=== PATIENT | male | born 1985 | race Caucasian/White ===

== ENCOUNTER 2019-09-25 12:47 | Inpatient (IN) | payer SELFPAY ==
[2019-09-25 12:53] VITALS: BP 122/83; PULSE 86; RESP 14; TEMP 36.5; O2SAT 96; BMI 19.2
--- NOTE | 2019-09-25 13:03 | ED_ITS ---
HPI - Psych General: Chief Complaint: Psychiatric Symptoms Stated Complaint: SI Time Seen by Provider: 09/25/19 12:59 Source: patient Mode of arrival: ambulatory History of Present Illness: HPI Narrative: 33-year-old male who states he has been depressed and suicidal over the last week. He states he has a plan of shooting himself in the head. Patient brought in by police. MD complaint: suicidal ideation Onset (ago): week(s) Duration: constant History of same: Yes Relieving factors: none Exacerbating factors: none Associated symptoms: Reports depression and suicidal ideation Review of Systems Const: Denies: fever(s), chills, body aches or change in appetite Eyes: Denies: blurry vision or eye discomfort ENMT: Denies: throat pain or dental pain Card: Denies: chest pain Resp: Denies: dyspnea GI: Denies: abdominal pain, nausea, vomiting or diarrhea : Denies: dysuria Musc: Denies: neck pain or back pain Skin/Breast: Denies: rash Neuro: Denies: headache(s) Psych: Reports: depression and suicidal ideation Paco/Lymph: Denies: easy bruising All/Imm: Denies: urticaria PFSH ED PFSH: Social History Smoking and tobacco status: current every day smoker Physical Exam Const: COMMON NORMALS: no acute distress, patient oriented x3 and healthy appearing HENMT: COMMON NORMALS: normocephalic and atraumatic HEAD & SCALP: normocephalic and atraumatic Eye: COMMON NORMALS: Equal, round and reactive pupils present and EOMs intact bilaterally PUPIL: Yes Equal, round and reactive pupils present Neck/C-Spine: COMMON NORMALS: full ROM and supple Chest: COMMONS NORMALS: normal inspection of the chest and normal palpation of entire chest wall Resp: COMMON NORMALS: normal respiratory effort, No retractions, No use of accessory muscles and clear to auscultation bilaterally AUSCULTATION: clear to auscultation bilaterally Cardio: COMMON NORMALS: regular rate, regular rhythm and No murmurs present (Cardio) RATE: regular rate RHYTHM: regular rhythm GI: COMMON NORMALS: Normal to inspection, nondistended, normoactive bowel sounds present, Soft to palpation, non-tender and no masses PALPATION: Yes Soft to palpation Extremity: COMMON NORMALS: normal to inspection and full ROM Neuro: COMMON NORMALS: patient oriented x3, moves all extremities and no focal motor deficits Psych: COMMON NORMALS: mental status grossly normal and cooperative MOOD & AFFECT: Yes depressed mood and Yes Flat affect present THOUGHT CONTENT: Yes Suicidality present Skin: COMMON NORMALS: no rashes or lesions noted and no wounds GENERAL SKIN EXAM: no rashes or lesions noted MDM - Psych MDM Narrative: Medical decision making narrative: Patient presents here with suicidal ideation. Patient is medically cleared I spoke to psychiatrist Dr. Ac and will admit to the MPU. Lab Data: Labs: Lab Results 09/25/19 09/25/19 Range/Units 13:04 13:04 WBC 6.2 (4.0-10.0) 10^3/ uL RBC 5.21 (4.1-5.3) 10^6/u L Hgb 15.6 (11.7-16.6) g/dL Hct 47.0 (42.0-52.0) % MCV 90.2 (80-94) fL MCH 29.9 (28.0-34.0) pg MCHC 33.2 (30.0-36.0) g/dL RDW 13.5 (12.1-15.1) % Plt Count 270 (130-400) 10^3/c mm MPV 9.3 (7.4-10.4) fL Neut % (Auto) 53.4 % Lymph % (Auto) 31.6 % Freestone % (Auto) 9.0 % Eos % (Auto) 5.1 % Baso % (Auto) 0.6 % Neut # (Auto) 3.3 (1.8-7.7) 10^3/u L Lymph # (Auto) 2.0 (0.8-4.8) 10^3/u L Freestone # (Auto) 0.6 (0.2-0.9) 10^3/u L Eos # (Auto) 0.3 (0.0-0.8) 10^3/u L Baso # (Auto) 0.0 (0.0-0.1) 10^3/u L Nucleated RBC % (a uto) 0 % Nucleated RBCs # 0.0 /100WBC Sodium 138 (136-145) mmol/L Potassium 4.0 (3.5-5.1) mmol/L Chloride 102 (98-107) mmol/L Carbon Dioxide 26 (22-29) mmol/L Anion Gap 14.0 (5-19) BUN 14 (6-20) mg/dL Creatinine 0.8 (0.7-1.2) mg/dL GFR Calculation 110.7 (90-130) mL/min Glucose 82 (65-115) mg/dL Calculated Osmolal ity 281 L (285-295) mOsm/k g Calcium 9.1 (8.5-10.5) mg/dL Total Bilirubin 0.2 (0.15-1.2) mg/dL AST 18 (0-40) U/L ALT 17 (0-41) U/L Alkaline Phosphata se 89 (40-130) IU/L Total Protein 7.3 (6.6-8.7) g/dL Albumin 4.3 (3.5-5.2) g/dL Globulin 3.0 (1.3-4.6) g/dL Salicylates < 0.3 L (3-10) mg/dL Acetaminophen < 5.0 L (10-30) ug/mL Ethyl Alcohol < 10 (0-10) mg/dL Discharge Plan Discharge Patient Disposition: Admitted As Inpatient Clinical Impression: Suicidal ideation Condition: Stable Coding Level of Care Code ED 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
[2019-09-25 13:16] LABS: Basophils % 0.6 %; Eosinophils # 0.3 10^3/uL (0.0-0.8); Eosinophils % 5.1 %; Hemoglobin 15.6 g/dL (11.7-16.6); Lymphocytes % 31.6 %; Mean Corpuscular HGB Conc 33.2 g/dL (30.0-36.0); Mean Corpuscular Hemoglobin 29.9 pg (28.0-34.0); Mean Corpuscular Volume 90.2 fL (80-94); Mean Platelet Volume 9.3 fL (7.4-10.4); Monocytes # 0.6 10^3/uL (0.2-0.9); Neutrophils # 3.3 10^3/uL (1.8-7.7); Neutrophils % 53.4 %; Nucleated Red Blood Cells % 0 %; Platelet Count 270 10^3/cmm (130-400); Red Blood Count 5.21 10^6/uL (4.1-5.3); Red Cell Distribution Width 13.5 % (12.1-15.1); White Blood Count 6.2 10^3/uL (4.0-10.0)
[2019-09-25 13:25] LABS: Acetaminophen < 5.0 ug/mL (10-30); Alanine Aminotransferase 17 U/L (0-41); Albumin Level 4.3 g/dL (3.5-5.2); Alcohol Level < 10 mg/dL (0-10); Alkaline Phosphatase 89 IU/L (40-130); Aspartate Amino Transferase 18 U/L (0-40); Blood Urea Nitrogen 14 mg/dL (6-20); Calcium 9.1 mg/dL (8.5-10.5); Carbon Dioxide 26 mmol/L (22-29); Chloride 102 mmol/L (98-107); Glomerular Filtration Rate 110.7 mL/min (90-130); Glucose 82 mg/dL (65-115); Osmolality Calculated 281 mOsm/kg (285-295); Salicylate < 0.3 mg/dL (3-10); Sodium 138 mmol/L (136-145); Total Bilirubin 0.2 mg/dL (0.15-1.2); Total Protein 7.3 g/dL (6.6-8.7)
[2019-09-25 14:06] VITALS: BP 109/70; PULSE 76; RESP 16; O2SAT 96
[2019-09-25 15:24] VITALS: BP 126/82; PULSE 71; RESP 20; TEMP 37; O2SAT 97
[2019-09-25] MEDS: OLANZapine 10 mg ODT PO (16:57)
[2019-09-25] MEDS: OLANZapine 10 mg TABLET PO (21:36)
[2019-09-25] MEDS: trazodone 50 mg Tablet PO (21:36)
[2019-09-25 22:00] VITALS: BP 114/70; PULSE 59; RESP 16; TEMP 36.7; O2SAT 96
[2019-09-26 06:00] VITALS: RESP 17
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
[2019-09-26 13:52] VITALS: BP 99/61; PULSE 85; RESP 18; TEMP 36.6; O2SAT 97
[2019-09-26] MEDS: OLANZapine 10 mg TABLET PO (20:54)
[2019-09-26 21:40] VITALS: BP 127/76; PULSE 75; RESP 20; TEMP 36.8; O2SAT 94
[2019-09-27 06:00] VITALS: BP 122/73; PULSE 59; RESP 18; TEMP 36.8; O2SAT 96
[2019-09-27 13:25] VITALS: BP 124/72; PULSE 90; RESP 20; TEMP 37.2; O2SAT 96
--- NOTE | 2019-09-27 13:35 | PM.NPN ---
Subjective NPU Subjective: Interval history: Andriy presented today with a significant improvement. He yesterday. No aggressive behavior noted. He did not address this quality analyst/technical writer as a Nigger, nor did he request that he be given a white doctor or any other provider. He apologized for his behavior and sat down with this quality analyst/technical writer respectfully. We reviewed the contents of his 96-hour hold affidavits and the concern that we had related to his reported plan to shoot himself in the head and that people would find his brain splattered over the wall. We agreed to do our due diligence to make sure there is no access to guns at discharge we discussed the risk benefits and alternatives of discharge tomorrow as he is not interested in treatment or medication. Mental Status Exam MSE Comments: This is a well-nourished well-developed white male with adequate dress, grooming and eye contact. No abnormal movements cooperative with exam in no acute distress. Speech was normal rate and volume. Mood described as much better affect congruent. Thought process organized. Thought content: Patient denied any suicidal or homicidal ideations, there were no delusions reported or noted, he denied any auditory visual hallucinations. Attention and concentration were intact and memory was unreliable but none were formally tested. He is alert and oriented x3. Insight and judgment are improving. Vitals/I&O/Wt Last Vital Signs Temp 98.9 F 09/27/19 21:22 Pulse 78 09/27/19 21:22 Resp 20 H 09/27/19 21:22 BP 132/78 09/27/19 21:22 Pulse Ox 97 09/27/19 21:22 Data NPU : 09/25/19 13:04 09/25/19 13:04 A&P Assessment and plan (1) Depression: Status: Acute (2) Substance abuse: Status: Acute (3) Partner relational problem: Status: Acute Additional A&P Information This is a 33-year-old white male with a history of depression and substance abuse with recent partner relational problems which in part led to a 96-hour hold. 1. Continue current medication. And offer to be restarted on medication. 2. Encourage individual group and milieu therapy. 3. Continue to 15-minute checks for safety. 4. We will work with social work team for appropriate follow-up. Involuntary Hold Information 96 Hour Hold: 96 Hour Involuntary Admission: Yes 96 Hour Hold Ending Date: 10/01/19 96 Hour Hold Ending Time: 13:10 Attestations NPU Medical Necessity Statement*: Inpatient hospitalization is medically necessary and the clinically appropriate intervention at this time we will monitor medications and make adjustments. Likely length of stay 2-4 days.If able to verify safety and absence of access to weapons likely will discharge tomorrow. 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
[2019-09-27] MEDS: OLANZapine 10 mg TABLET PO (21:07)
[2019-09-27 21:22] VITALS: BP 132/78; PULSE 78; RESP 20; TEMP 37.2; O2SAT 97
[2019-09-28 06:00] VITALS: BP 114/73; PULSE 69; RESP 22; TEMP 36.8; O2SAT 96
--- NOTE | 2019-09-28 11:27 | P.DS_ITS ---
Diagnoses at Discharge Discharge Diagnosis (1) Partner relational problem: Status: Acute (2) Substance abuse: Status: Acute (3) Depression: Status: Acute (4) Suicidal ideation: Status: Resolved Reason for Visit Reason for Visit: Reason For Visit: 96 Brief History: History of Present Illness Andriy Weston is a 33 year old male who presented today spending most of the time trying to ask other staff if there were any white doctors that he could see so that he would not have to see this caption writer.He walked past this caption writer yesterday after he arrived shaking his head and glaring while saying fucking niggers! After he yielded to that he spent the next portion of the interview saying that he did not want to talk to someone who looks like me. I explained to him the circumstance that he found himself in. There is a 96-hour hold in that that 96-hour hold would not be until September 30. He then advised me that he would be willing to wait to do first to see a white doctor. I explained to him that actually I would be the doctor of record at least through Tuesday which will be the third. He was not willing to give me any significant information. He denied any interest in taking medication or having any treatment and just reported that he wanted to be discharged. He did acknowledge that he was seen in the past and an accident from a March 2018 evaluation is included below given the limited information received during this interaction from a substantive sense for the reason for this presentation. Date of Service: Mar 20, 2018 Reason for Consultation: Suicidal ideation, psychosis Consulting Service and Doctor: ER physician Dr. Meraz HPI: Chief Complaint: Suicidal/aggressive behavior HPI: Patient is a 32-year-old male admitted from the [facility] emergency room on a 96 hour hold due to reported psychosis/hallucinations and aggressive/suicidal behavior. Affidavit reviewed on the patient's chart indicated that his girlfriend had called police as he appeared to be hallucinating and had a rope around his neck. When the police arrived they described him as being paranoid that his girlfriend and the police were trying to kill him. Apparently the girlfriend had made a statement that he was possibly on bath salts. Apparently the patient had been very aggressive towards the emergency room staff and was given Haldol and Benadryl and subsequently sedated. The patient was intoxicated with alcohol with level 181 and urine drug screen is also positive for methamphetamines. ER physician had apparently requested this psychiatric consultation last night. Attending currently reports that the patient has been sedated and is not likely to provide much information at this time. Nursing staff reports the patient wakes up briefly but has been suddenly falling asleep throughout the day including while attempting to call his girlfriend on the telephone or in mid conversation. On [id number] assessment, attending physician introduces this provider and asked the patient to open his eyes and speak with this provider. The patient does open his eyes but reports no he will not speak with this provider. When asked what brought him into the hospital he only grunts. When asked again if he remembers what happened and brought him into the hospital he reports no . When asked if he has been using any substances such as alcohol or other drugs he reports no . He does not offer any free thought/ conversation, so it is unable to be determined if he is understanding any of the questions being asked due to giving no other response than no. Home Meds: Not known Past Medical History Past Medical History Past psychiatric/Medical/family/social History: The history is unknown Review of Systems Review of Systems Review of Systems: Unable to obtain due to patient's sedation. Active Meds: Current Hospital Medications: Medications (Trade) Dose Ordered Sig/Lg Route PRN Reason Start Time Stop Time Status Last Admin Dose Admin Ondansetron HCl (Zofran Inj) 4 mg Q6H PRN IV FOR NAUSEA AND VOMITING 03/20/18 02:00 Sodium Chloride 1,000 ml @ 100 mls/hr CONT IV 03/20/18 02:00 03/20/18 14:34 Haloperidol Lactate (Haldol Inj) 2 mg Q4H PRN IV FOR AGITATION 03/20/18 02:45 Thiamine Mononitrate (Thiamine Tab) 100 mg DAILY PO 03/21/18 10:00 Multivitamins Therapeutic (Therapeutic Multivitamin) 1 ea DAILY PO 03/20/18 10:00 Folic Acid/ Cyanocobalamin/ pyridoxin (Folic Acid Tab) 1 mg DAILY PO 03/20/18 10:00 Lorazepam (Ativan Inj) 2 mg PRN PRN IV FOR WITHDRAWAL 03/20/18 02:45 03/20/18 05:43 Lorazepam (Ativan Inj) 2 mg PRN PRN IM for Withdrawal 03/20/18 02:45 Lorazepam (Ativan Tab) 2 mg PRN PRN PO Withdrawal 03/20/18 02:45 Folic Acid/ Cyanocobalamin/ pyridoxin 1 mg/ Multivitamins 10 ml/Thiamine HCl 100 mg/Sodium Chloride 1,011.2 ml @ 249.013 mls/hr DAILY IV 03/20/18 10:00 03/20/18 09:59 Physical Exam Vital Signs: Vital Signs: Date Time Temp Pulse Resp B/P (MAP) Pulse Ox O2 Delivery O2 Flow Rate FiO2 03/20/18 19:47 57 94 Room Air 03/20/18 18:17 15 112/68 03/20/18 14:00 98.0 Physical Exam: Vital signs: Stable. Musculoskeletal: Unable to be tested currently due to patient's sedation, moves all 4 extremities Neurological: Cranial nerves II through XII grossly intact. Gait and station not tested currently in ICU bed. Hospital Course Hospital Course The patient presented to the emergency room aggressive and on a 96-hour hold, secondary to that aggression, as well as statements that he would shoot himself in the head, very graphically. He was admitted to the neuropsychiatric unit for definitive treatment for those issues. Upon admission, he very slowly acclimated to the individual, group, and milieu therapies provided. He initially was very agitated and greeted this caption writer with racial slurs, including stupid nigger, and things of that nature. He was, initially, reporting that he was going to wait for us to have a white doctor before engaging in treatment. Ultimately, after a couple of days, his likely methamphetamine or other substance intoxication and withdrawal resolved, and he was much more pleasant. Unfortunately there was no UDS obtained in the emergency room and he refused them on the unit, so we do not have a definitive sense of what he was struggling with. Once he stared feeling better, however, he was resistant to initiation of medication and basically took the position that if he maintained his sobriety, things would be fine. His greatest focus was getting back to his significant other. During the hospitalization, the patient had routine laboratory studies which were within normal limits, except for a few outliers. Additionally, he had a general medical evaluation which was within normal limits and revealed no new acute processes. Discharge Summary At the time of discharge the patient denied all lethality, was absent psychosis, and mood and anxiety were well managed. The patient endorsed a plan to avoid all drugs of abuse. The patient was given referrals but was reluctant to commit to outpatient services for mental health or substance abuse treatment. He was evaluated and deemed to be absent credible lethality, and had achieved the maximum benefit from an inpatient hospitalization, and so he was discharged. Involuntary Hold Information 96 Hour Hold: 96 Hour Involuntary Admission: Yes 96 Hour Hold Ending Date: 10/01/19 96 Hour Hold Ending Time: 13:10 Mental Status Exam MSE Comments: This is a slender, white male, with adequate dress, grooming, and eye contact. No abnormal movements. Cooperative with exam in no acute distress. Speech was normal rate and volume. Mood described as good; affect congruent. Thought process, organized. Thought content: patient denied any suicidal or homicidal ideation, there were no delusions reported or noted, patient denied any auditory or visual hallucinations. Attention, concentration, and memory appeared intact but none were formally tested. He is alert and oriented times three. Insight and judgment are limited but improving. Discharge Data Data Completed and Pending: Pending at discharge Category Date Time Status Drug Screen, Urin e Stat Lab 09/25/19 12:54 Uncollected Vitals: Last Vital Signs Temp 98.2 F 09/28/19 06:00 Pulse 69 09/28/19 06:00 Resp 22 H 09/28/19 06:00 BP 114/73 09/28/19 06:00 Pulse Ox 96 09/28/19 06:00 Discharge Plan Discharge Patient Disposition: Home, Self-Care Condition: Stable Prescriptions: Continued No Known Home Medications RF: 0 Discharge Orders: Discharge Order (Routine); Ordered 09/28/19 Ordered By: Joselito Ac Referrals: [facility] [Outside] - 4-7 days (initial paperwork was given to you to fill out. After [facility] has your initial paperwork completed, you will get an assessment. Then you will be able to get appointments. walk-in hours are 7:30 a.m.-2:30 Tuesday through Tuesday. Be sure to call [facility] if you have any questions. ) Discharge Diet: Regular Discharge Activity: Resume usual activity Discharge Date/Time: 09/28/19 12:18 Discharge Attestations NPU Time Spent in Discharge Care*: less than 30 min Specific Discharge Activities: Specific discharge activities: educating patient, discussing with classification case manager/social workers/dc planners, documenting/other paperwork and evaluating patient/reviewing data Coding Level of Care Code Acute Engineering Professionals for Chg Fwd Diagnoses Partner relational problem Z63.0 Substance abuse F19.10 Depression F32.9 Suicidal ideation R45.853
[2019-09-28 11:34] VITALS: BP 114/73; PULSE 69; RESP 22; TEMP 36.8; O2SAT 96
== END 2019-09-28 12:18 | disposition home or self-care (01) | DRG 881 ==
LOC: ER 13:30 → NP 13:48
PROVIDERS: Emergency Medicine; Admitting Provider Psychiatry & Neurology Psychiatry; Visit Provider Psychiatry & Neurology Psychiatry
DX: F32.9 Major depressive disorder, single episode, unspecified (principal); R45.851 Suicidal ideations; F10.129 Alcohol abuse with intoxication, unspecified; Y90.6 Blood alcohol level of 120-199 mg/100 ml; F15.10 Other stimulant abuse, uncomplicated; Z63.0 Problems in relationship with spouse or partner
CPT/HCPCS: 12345; 36415; 80053; 80307; 85025; 99284

== ENCOUNTER 2020-02-14 18:03 | Inpatient (IN) | payer SELFPAY ==
[2020-02-14 18:03] VITALS: BP 131/97; PULSE 105; RESP 18; O2SAT 97
[2020-02-14 18:06] VITALS: BP 044/97; PULSE 118; RESP 18; O2SAT 98
--- NOTE | 2020-02-14 18:11 | ED_ITS ---
HPI - Psych General: Chief Complaint: Psychiatric Symptoms Stated Complaint: si Time Seen by Provider: 02/14/20 18:07 Source: patient Mode of arrival: ambulatory Limitations: no limitations History of Present Illness: HPI Narrative: Chandler is a 34-year-old male with a history of severe depression. He states that he has had suicidal thoughts over the last 1 to 2 days and is voluntarily wanting to get help. He supposed to be on meds and is not been taking them. He does use marijuana denies any other drug use. Denies any recent suicide attempts. Denies any worsening or im proving factors. Associated symptoms: Reports depression and suicidal ideation Review of Systems Const: Denies: fever(s), chills, body aches or change in appetite Eyes: Denies: blurry vision or eye discomfort ENMT: Denies: throat pain or dental pain Card: Denies: chest pain Resp: Denies: dyspnea GI: Denies: abdominal pain, nausea, vomiting or diarrhea : Denies: dysuria Musc: Denies: neck pain or back pain Skin/Breast: Denies: rash Neuro: Denies: headache(s) Psych: Reports: depression and suicidal ideation Paco/Lymph: Denies: easy bruising All/Imm: Denies: urticaria PFSH ED PFSH: Social History Smoking and tobacco status: current every day smoker Physical Exam Const: COMMON NORMALS: no acute distress, patient oriented x3 and healthy appearing HENMT: COMMON NORMALS: normocephalic and atraumatic HEAD & SCALP: normocephalic and atraumatic Eye: COMMON NORMALS: Equal, round and reactive pupils present and EOMs intact bilaterally PUPIL: Yes Equal, round and reactive pupils present Neck/C-Spine: COMMON NORMALS: full ROM and supple Chest: COMMONS NORMALS: normal inspection of the chest and normal palpation of entire chest wall Resp: COMMON NORMALS: normal respiratory effort, No retractions, No use of accessory muscles and clear to auscultation bilaterally AUSCULTATION: clear to auscultation bilaterally Cardio: COMMON NORMALS: regular rate, regular rhythm and No murmurs present (Cardio) RATE: regular rate RHYTHM: regular rhythm GI: COMMON NORMALS: Normal to inspection, nondistended, normoactive bowel sounds present, Soft to palpation, non-tender and no masses PALPATION: Yes Soft to palpation Extremity: COMMON NORMALS: normal to inspection and full ROM Neuro: COMMON NORMALS: patient oriented x3, moves all extremities and no focal motor deficits Psych: COMMON NORMALS: mental status grossly normal, Normal thought process present and cooperative MOOD & AFFECT: Yes depressed mood THOUGHT PROCESS: Normal thought process present THOUGHT CONTENT: Yes Suicidality present Skin: COMMON NORMALS: no rashes or lesions noted and no wounds GENERAL SKIN EXAM: no rashes or lesions noted MDM - Psych MDM Narrative: Medical decision making narrative: Patient presents for suicidal ideations. He is voluntarily wanting to be admitted. Patient is medically cleared I spoke to Dr. Ac and will admit. Lab Data: Labs: Lab Results 02/14/20 02/14/20 02/14/20 Range/Units 18:42 18:42 19:03 WBC 9.9 (4.0-10.0) 10^3/ uL RBC 5.35 H (4.1-5.3) 10^6/u L Hgb 16.3 (11.7-16.6) g/dL Hct 49.6 (42.0-52.0) % MCV 92.7 (80-94) fL MCH 30.5 (28.0-34.0) pg MCHC 32.9 (30.0-36.0) g/dL RDW 13.6 (12.1-15.1) % Plt Count 357 (130-400) 10^3/c mm MPV 9.2 (7.4-10.4) fL Neut % (Auto) 50.5 % Lymph % (Auto) 29.7 % [place] % (Auto) 5.5 % Eos % (Auto) 13.3 % Baso % (Auto) 0.7 % Neut # (Auto) 4.99 (1.8-7.7) 10^3/u L Lymph # (Auto) 2.9 (0.8-4.8) 10^3/u L [place] # (Auto) 0.5 (0.2-0.9) 10^3/u L Eos # (Auto) 1.3 H (0.0-0.8) 10^3/u L Baso # (Auto) 0.1 (0.0-0.1) 10^3/u L Nucleated RBC % (a uto) 0 % Nucleated RBCs # 0.0 /100WBC Sodium 140 (136-145) mmol/L Potassium 3.6 (3.5-5.1) mmol/L Chloride 102 (98-107) mmol/L Carbon Dioxide 27 (22-29) mmol/L Anion Gap 14.6 (5-19) BUN 13 (6-20) mg/dL Creatinine 0.9 (0.7-1.2) mg/dL GFR Calculation 96.0 (90-130) mL/min Glucose 97 (65-115) mg/dL Calculated Osmolal ity 290 (285-295) mOsm/k g Calcium 9.6 (8.5-10.5) mg/dL Total Bilirubin 0.2 (0.15-1.2) mg/dL AST 15 (0-40) U/L ALT 16 (0-41) U/L Alkaline Phosphata se 114 (40-130) IU/L Total Protein 7.7 (6.6-8.7) g/dL Albumin 4.4 (3.5-5.2) g/dL Globulin 3.3 (1.3-4.6) g/dL Salicylates < 0.3 L (3-10) mg/dL Urine Opiates Scre en Negative (Negative) ng/mL Acetaminophen < 5.0 L (10-30) ug/mL Ur Barbiturates Sc reen Negative (Negative) ng/mL Ur Phencyclidine S crn Negative (Negative) ng/mL Ur Amphetamines Sc reen Negative (Negative) ng/mL U Benzodiazepines Scrn Negative (Negative) ng/mL Urine Cocaine Scre en Negative (Negative) ng/mL U Marijuana (THC) Screen Positive H (Negative) ng/mL Ethyl Alcohol < 10 (0-10) mg/dL Discharge Plan Discharge Patient Disposition: Admitted As Inpatient Admit Provider: Joselito Ac Clinical Impression: Suicidal ideation Condition: Stable Coding Level of Care Code ED Forwarder Operator for Anoop Fwd Exam Comprehensive
[2020-02-14 19:15] LABS: Basophils # 0.1 10^3/uL (0.0-0.1); Basophils % 0.7 %; Eosinophils # 1.3 10^3/uL (0.0-0.8); Eosinophils % 13.3 %; Hematocrit 49.6 % (42.0-52.0); Hemoglobin 16.3 g/dL (11.7-16.6); Lymphocytes # 2.9 10^3/uL (0.8-4.8); Lymphocytes % 29.7 %; Mean Corpuscular HGB Conc 32.9 g/dL (30.0-36.0); Mean Corpuscular Hemoglobin 30.5 pg (28.0-34.0); Mean Corpuscular Volume 92.7 fL (80-94); Mean Platelet Volume 9.2 fL (7.4-10.4); Monocytes # 0.5 10^3/uL (0.2-0.9); Monocytes % 5.5 %; Neutrophils # 4.99 10^3/uL (1.8-7.7); Neutrophils % 50.5 %; Nucleated Red Blood Cells % 0 %; Platelet Count 357 10^3/cmm (130-400); Red Blood Count 5.35 10^6/uL (4.1-5.3); Red Cell Distribution Width 13.6 % (12.1-15.1); White Blood Count 9.9 10^3/uL (4.0-10.0)
[2020-02-14] MEDS: LORazepam 1 mg Tablet 2 MG PO (19:21)
[2020-02-14 19:24] LABS: Amphetamines Screen Urine Negative (Negative); Barbiturates Screen Urine Negative (Negative); Benzodiazepines Screen Urine Negative (Negative); Cocaine Screen Urine Negative (Negative); Opiate Screen Urine Negative (Negative); PCP Screen Urine Negative (Negative); THC Screen Urine Positive (Negative)
--- NOTE | 2020-02-14 19:27 | PC.NURSE ---
report received from FRANCISCO J Wayne and care transferred to FRANCISCO J Escobedo
[2020-02-14 19:40] LABS: Acetaminophen < 5.0 ug/mL (10-30); Alanine Aminotransferase 16 U/L (0-41); Albumin Level 4.4 g/dL (3.5-5.2); Alcohol Level < 10 mg/dL (0-10); Alkaline Phosphatase 114 IU/L (40-130); Anion Gap 14.6 (5-19); Aspartate Amino Transferase 15 U/L (0-40); Blood Urea Nitrogen 13 mg/dL (6-20); Calcium 9.6 mg/dL (8.5-10.5); Carbon Dioxide 27 mmol/L (22-29); Chloride 102 mmol/L (98-107); Globulin 3.3 g/dL (1.3-4.6); Glucose 97 mg/dL (65-115); Osmolality Calculated 290 mOsm/kg (285-295); Potassium 3.6 mmol/L (3.5-5.1); Salicylate < 0.3 mg/dL (3-10); Sodium 140 mmol/L (136-145); Total Bilirubin 0.2 mg/dL (0.15-1.2); Total Protein 7.7 g/dL (6.6-8.7)
[2020-02-14 19:52] VITALS: BP 137/107; PULSE 88; RESP 16; O2SAT 99
[2020-02-14 20:48] VITALS: BP 123/80; PULSE 104; RESP 18; TEMP 36.7; O2SAT 96
[2020-02-14 22:00] VITALS: BP 123/80; PULSE 104; RESP 18; TEMP 36.7; O2SAT 99
[2020-02-15 06:00] VITALS: BP 120/73; PULSE 75; RESP 18; TEMP 36.7; O2SAT 99
[2020-02-15 06:18] VITALS: BP 120/73; PULSE 75; RESP 18; TEMP 36.7; O2SAT 99
[2020-02-15] MEDS: OLANZapine 5 mg ODT PO (08:32)
--- NOTE | 2020-02-15 08:32 | PC.NURSE ---
Zyprexa Zydis PRN/Agitation Patient at nurses station attempting to make phone calls and becomes very agitated and slamming phone. went to room and slammed door. PRN Zyprexa Zydis 5mg given at this time. Will continue to monitor effectiveness.
--- NOTE | 2020-02-15 09:30 | PC.NURSE ---
RODRIGO Alegre Follow up Patient continues to be agitated and verbally aggressive. Code 10 called at 0915.
[2020-02-15] MEDS: diphenhydrAMINE 50 mg/mL SDV 1mL IM (09:41)
[2020-02-15] MEDS: LORazepam 2 mg/mL INJ 1 mL IM (09:41)
[2020-02-15] MEDS: haloperidol inj 5 mg/mL INJ 1 mL IM (09:42)
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
--- NOTE | 2020-02-15 10:15 | PC.NURSE ---
Follow up Code 10 meds Patient resting in bed with eyes closed. respirations even and unlabored.
--- NOTE | 2020-02-15 11:59 | PC.NURSE ---
Code 10 0915 02/15/20 Patient Behavior At approximately 0915 the patient became angry and agitated because his SO would not answer the phone. He began ramming into the locked door several times. A code 10 was called and several staff members, the physician, greenhouse florist and security were present. Security spent several minutes talking with patient trying to de-escalate. The patient began inappropriate statements to the physician such as calling him a nigger . Began ramming the door again. We were able to walk him down to room 170 and he agreed to receive injections IM. Dr Ac made the decision to place patient on a 96 hour hold.
--- NOTE | 2020-02-15 12:20 | PC.RESP ---
Smoking Cessation information sent to patient.
[2020-02-15 14:00] VITALS: RESP 18; TEMP 36.4
[2020-02-15 21:41] VITALS: RESP 15
[2020-02-16 06:00] VITALS: BP 103/69; PULSE 93; RESP 17; TEMP 36.6; O2SAT 97
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
[2020-02-16 14:00] VITALS: BP 121/83; PULSE 94; RESP 20; TEMP 36.6; O2SAT 100
--- NOTE | 2020-02-16 15:52 | P.PN_ITS ---
Subjective NPU Subjective: Interval history: Andriy continued his attempts to avoid legitimate conversations with this aligner typewriter. He ultimately was able to acknowledge that he did much better when he was on Zyprexa at night. We discussed the risks, benefits and alternatives of starting 10 mg of a cough and ability to proceed as is documented in this note. He continued to be irritable and offensive. Mental Status Exam MSE Comments: This is a short but well-nourished, well-developed white male in hospital scrubs, with adequate grooming and eye contact. No abnormal movements except for mild psychomotor agitation. Slightly more cooperative with exam and moderate to severe distress. Speech was increased rate and volume. Mood described as annoyed, affect congruent. Thought process organized. Thought content: Patient endorsed suicidal ideation and was aggressive towards others, there were no delusions reported or noted, he did not respond to questions about auditory or visual hallucinations. Attention and concentration appeared intact and memory appeared reliable but none were formally tested. He is alert and oriented x3. Insight and judgment are impaired and impulse control is impaired. Vitals/I&O/Wt Last Vital Signs Temp 98.9 F 02/16/20 21:45 Pulse 68 02/16/20 21:45 Resp 16 02/16/20 21:45 BP 118/71 02/16/20 21:45 Pulse Ox 96 02/16/20 21:45 Weight last 48 hrs Weight 70.307 kg Data NPU : 02/14/20 18:42 02/14/20 18:42 A&P Additional A&P Information (1) Suicidal ideation: (2) Partner relational problem: (3) Substance abuse: (4) Depression: (5) Cannabis abuse: This is a 34-year-old white male who presents with extreme agitation, reporting suicidality and significant despair related to the challenges with his marriage/relationship but with little cooperation with exam. 1. Continue medication. Except: Start Zyprexa 10 mg p.o. nightly 3. Encourage individual, group and milieu therapy. 4. Encourage sober living treatment after discharge at the highest level to which he is willing to commit. 5. Due to Andriy's level of aggression and demanding to leave with suicidal threats, he was placed on a 96-hour hold. Involuntary Hold Information 96 Hour Hold: 96 Hour Involuntary Admission: No 96 Hour Hold Ending Date: 10/01/19 96 Hour Hold Ending Time: 13:10 Attestations NPU Medical Necessity Statement*: Inpatient hospitalization is medically necessary and the clinically appropriate intervention at this time. We will monitor medications and make changes as indicated. Likely length of stay 3-5 days. 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
[2020-02-16] MEDS: OLANZapine 5 mg ODT PO (21:16)
[2020-02-16] MEDS: nicotine 2 mg Gum BUCCAL (21:17)
[2020-02-16 21:45] VITALS: BP 118/71; PULSE 68; RESP 16; TEMP 37.2; O2SAT 96
[2020-02-16] MEDS: OLANZapine 10 mg TABLET PO (23:06)
[2020-02-17 06:00] VITALS: BP 95/62; PULSE 64; RESP 15; TEMP 36.5; O2SAT 97
[2020-02-17 14:00] VITALS: BP 113/73; PULSE 102; RESP 18; TEMP 37.1; O2SAT 96
[2020-02-17] MEDS: nicotine 2 mg Gum BUCCAL ×2 (14:13→21:17)
--- NOTE | 2020-02-17 15:07 | P.PN_ITS ---
Subjective NPU Subjective: Interval history: Andriy presents today reporting that he feels much better. He took a moment to apologize for his racist behaviors on the first days of treatment. Somewhat halfhearted but an apology nonetheless. He discussed having a court hearing in the morning for driving without a license or a seatbelt and some other charges. He reports desire to be at that hearing. We discussed the risk benefits alternatives of discharging tomorrow and he understood and agreed to proceed as documented in this note. Mental Status Exam MSE Comments: This is a short but well-nourished, well-developed white male in hospital scrubs, with adequate grooming and eye contact. No abnormal movements except for resolving psychomotor agitation. More cooperative with exam in no acute distress. Speech was more normal rate and volume. Mood described as a lot better, affect congruent. Thought process organized. Thought content: Patient denied suicidal or homicidal ideations, there were no delusions reported or noted, he denied auditory or visual hallucinations. Attention and concentration appeared intact and memory appeared reliable but none were formally tested. He is alert and oriented x3. Insight and judgment are improving and impulse control is improving. Vitals/I&O/Wt Last Vital Signs Temp 97.7 F 02/17/20 22:00 Pulse 75 02/17/20 22:00 Resp 18 02/17/20 22:00 BP 121/70 02/17/20 22:00 Pulse Ox 95 02/17/20 22:00 Weight last 48 hrs Weight 70.307 kg Weight 70.307 kg Data NPU : 02/14/20 18:42 02/14/20 18:42 A&P Additional A&P Information (1) Suicidal ideation: (2) Partner relational problem: (3) Substance abuse: (4) Depression: (5) Cannabis abuse: This is a 34-year-old white male who presents with extreme agitation, reporting suicidality and significant despair related to the challenges with his marriage/relationship but with little cooperation with exam. 1. Continue medication. Except: Start Zyprexa 10 mg p.o. nightly 2. Continue every 15 minute checks for safety 3. Encourage individual, group and milieu therapy. 4. Encourage sober living treatment after discharge at the highest level to which he is willing to commit. 5. Plan to discharge tomorrow to court appearance at 9 AM Involuntary Hold Information 96 Hour Hold: 96 Hour Involuntary Admission: No 96 Hour Hold Ending Date: 10/01/19 96 Hour Hold Ending Time: 13:10 Attestations NPU Medical Necessity Statement*: Inpatient hospitalization is medically necessary and the clinically appropriate intervention at this time. We will monitor medications and make changes as indicated. 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
[2020-02-17] MEDS: hyDROXYzine 25 mg Capsule 50 MG PO (21:08)
[2020-02-17] MEDS: OLANZapine 10 mg TABLET PO (21:08)
[2020-02-17] MEDS: trazodone 50 mg Tablet PO (21:08)
[2020-02-17 22:00] VITALS: BP 121/70; PULSE 75; RESP 18; TEMP 36.5; O2SAT 95
--- NOTE | 2020-02-18 05:16 | P.DS_ITS ---
Diagnoses at Discharge Discharge Diagnosis (1) Suicidal ideation: Status: Resolved (2) Partner relational problem: Status: Acute (3) Substance abuse: Status: Acute (4) Depression: Status: Acute (5) Cannabis abuse: Status: Acute Reason for Visit Reason for Visit: si Brief History: History of Present Illness Andriy Weston is a 34 year old male who presented to the emergency department with the following report: Chief Complaint: Psychiatric Symptoms Stated Complaint: si Time Seen by Provider: 02/14/20 18:07 Source: patient Mode of arrival: ambulatory Limitations: no limitations History of Present Illness: HPI Narrative: Chandler is a 34-year-old male with a history of severe depression. He states that he has had suicidal thoughts over the last 1 to 2 days and is voluntarily wanting to get help. He supposed to be on meds and is not been taking them. He does use marijuana denies any other drug use. Denies any recent suicide attempts. Denies any worsening or improving factors. Associated symptoms: Reports depression and suicidal ideation. He was admitted to the neuropsychiatric unit for definitive treatment of those issues. Today he presents angry and verbally assaultive. Is again he was screaming at staff. He was saying that he wanted to leave immediately and that we were not doing anything for him. When this telegraphic typewriter operator got out there he was insistent for the next 20 minutes of our engagement that he did not want to speak to this telegraphic typewriter operator. He reported that he wanted to speak to a different doctor because he did not want to speak to a nigger. He did commit to reporting multiple derogatory nicknames. Referred to this telegraphic typewriter operator as Nig, Nig nog, antique farm equipment, and nigger alot. He also at the point that he was very angry scared following joke? How do you know when that a nigger is well hung? When you cannot fit 2 fingers between the noose and his neck. Ultimately he reported that he was depressed and suicidal and no one wanted to help him so he wanted to leave. Multiple attempts to assist him in calming down and de-escalating were made by this telegraphic typewriter operator and multiple other staff. Ultimately he required as needed vacation to assist him but he continued to deny wanting to talk to this telegraphic typewriter operator. Social work from the emergency department had advised that he was unable to get his medication while he was outpatient due to cost and so I requested that he talk to me about that but he never ultimately answered that line of questioning. Due to his limited cooperation excerpt of his last evaluation is included below. Per his 09/26/2019 [facility] inpatient evaluation: History of Present Illness Andriy Weston is a 33 year old male who presented today spending most of the time trying to ask other staff if there were any white doctors that he could see so that he would not have to see this telegraphic typewriter operator.He walked past this telegraphic typewriter operator yesterday after he arrived shaking his head and glaring while saying fucking niggers! After he yielded to that he spent the next portion of the interview saying that he did not want to talk to someone who looks like me. I explained to him the circumstance that he found himself in. There is a 96-hour hold in that that 96-hour hold would not be until September 30. He then advised me that he would be willing to wait to do first to see a white doctor. I explained to him that actually I would be the doctor of record at least through Tuesday which will be the third. He was not willing to give me any significant information. He denied any interest in taking medication or having any treatment and just reported that he wanted to be discharged. He did acknowledge that he was seen in the past and an accident from a March 2018 evaluation is included below given the limited information received during this interaction from a substan tive sense for the reason for this presentation. Date of Service: Mar 20, 2018 Reason for Consultation: Suicidal ideation, psychosis Consulting Service and Doctor: ER physician Dr. Meraz HPI: Chief Complaint: Suicidal/aggressive behavior HPI: Patient is a 32-year-old male admitted from the [facility] emergency room on a 96 hour hold due to reported psychosis/hallucinations and aggressive/suicidal behavior. Affidavit reviewed on the patient's chart indicated that his girlfriend had called police as he appeared to be hallucinating and had a rope around his neck. When the police arrived they described him as being paranoid that his girlfriend and the police were trying to kill him. Apparently the girlfriend had made a statement that he was possibly on bath salts. Apparently the patient had been very aggressive towards the emergency room staff and was given Haldol and Benadryl and subsequently sedated. The patient was intoxicated with alcohol with level 181 and urine drug screen is also positive for methamphetamines. ER physician had apparently requested this psychiatric consultation last night. Attending currently reports that the patient has been sedated and is not likely to provide much information at this time. Nursing staff reports the patient wakes up briefly but has been suddenly falling asleep throughout the day including while attempting to call his girlfriend on the telephone or in mid conversation. On [id number] assessment, attending physician introduces this provider and asked the patient to open his eyes and speak with this provider. The patient does open his eyes but reports no he will not speak with this provider. When asked what brought him into the hospital he only grunts. When asked again if he remembers what happened and brought him into the hospital he reports no . When asked if he has been using any substances such as alcohol or other drugs he reports no . He does not offer any free thought/ conversation, so it is unable to be determined if he is understanding any of the questions being asked due to giving no other response than no. Home Meds: Not known Past Medical History Past Medical History Past psychiatric/Medical/family/social History: The history is unknown Review of Systems Review of Systems Review of Systems: Unable to obtain due to patient's sedation. Active Meds: Current Hospital Medications: Medications (Trade) Dose Ordered Sig/Lg Route PRN Reason Start Time Stop Time Status Last Admin Dose Admin Ondansetron HCl (Zofran Inj) 4 mg Q6H PRN IV FOR NAUSEA AND VOMITING 03/20/18 02:00 Sodium Chloride 1,000 ml @ 100 mls/hr CONT IV 03/20/18 02:00 03/20/18 14:34 Haloperidol Lactate (Haldol Inj) 2 mg Q4H PRN IV FOR AGITATION 03/20/18 02:45 Thiamine Mononitrate (Thiamine Tab) 100 mg DAILY PO 03/21/18 10:00 Multivitamins Therapeutic (Therapeutic Multivitamin) 1 ea DAILY PO 03/20/18 10:00 Folic Acid/ Cyanocobalamin/ pyridoxin (Folic Acid Tab) 1 mg DAILY PO 03/20/18 10:00 Lorazepam (Ativan Inj) 2 mg PRN PRN IV FOR WITHDRAWAL 03/20/18 02:45 03/20/18 05:43 Lorazepam (Ativan Inj) 2 mg PRN PRN IM for Withdrawal 03/20/18 02:45 Lorazepam (Ativan Tab) 2 mg PRN PRN PO Withdrawal 03/20/18 02:45 Folic Acid/ Cyanocobalamin/ pyridoxin 1 mg/ Multivitamins 10 ml/Thiamine HCl 100 mg/Sodium Chloride 1,011.2 ml @ 249.013 mls/hr DAILY IV 03/20/18 10:00 03/20/18 09:59 Physical Exam Vital Signs: Vital Signs: Date Time Temp Pulse Resp B/P (MAP) Pulse Ox O2 Delivery O2 Flow Rate FiO2 03/20/18 19:47 57 94 Room Air 03/20/18 18:17 15 112/68 03/20/18 14:00 98.0 Physical Exam: Vital signs: Stable. Musculoskeletal: Unable to be tested currently due to patient's sedation, moves all 4 extremities Neurological: Cranial nerves II through XII grossly intact. Gait and station not tested currently in ICU bed. Meds NPU Home Medications Medication Instructions Recorded Confirmed Last Taken Type No Known Home Medications 09/25/19 09/25/19 Unknown History Allergies Allergy/AdvReac Type Severity Reaction Status Date / Time No Known Allergies Allergy Verified 09/25/19 12:53 PFSH NPU PFSH: Social History Smoking and tobacco status: current every day smoker Hospital Course Hospital Course Andriy presented to the emergency department reporting depression, suicidal thoughts, active addiction and being off of his medication. He was admitted to the neuropsychiatric unit for definitive treatment of those issues. He was initially quite aggressive and likely withdrawing from some substances as he was having racist Brandts and aggressive and needing as needed medication. He eventually acclimated to the individual, group and milieu therapies provided. He was restarted on Zyprexa which he has had previous success on. He showed marked improvement and was able to contract for safety. He had a court date t hat he needed to attend. That he was discharged to. During the hospitalization he had routine laboratory studies which were within normal limits except for few outliers. Additionally he had a general medical evaluation which was also within normal limits and revealed no new acute processes. Discharge Summary At the time of discharge he was absent lethality or psychosis. His mood and anxiety were well managed. He endorsed a plan to avoid all of abuse and follow- up with the treatment team's recommendation as an outpatient. He was evaluated and deemed to be absent credible lethality and had achieved a maximum benefit from an inpatient hospitalization, so he was discharged. Involuntary Hold Information 96 Hour Hold: 96 Hour Involuntary Admission: No 96 Hour Hold Ending Date: 10/01/19 96 Hour Hold Ending Time: 13:10 Mental Status Exam MSE Comments: This is a short but well-nourished, well-developed white male in hospital scrubs, with adequate grooming and eye contact. No abnormal movements.. Cooperative with exam in no acute distress. Speech was more normal rate and volume. Mood described as pretty good, affect congruent. Thought process organized. Thought content: Patient denied suicidal or homicidal ideations, there were no delusions reported or noted, he denied auditory or visual hallucinations. Attention and concentration appeared intact and memory appeared reliable but none were formally tested. He is alert and oriented x3. Insight and judgment are fair and impulse control is improving. Discharge Data Vitals: Last Vital Signs Temp 97.7 F 02/17/20 22:00 Pulse 75 02/17/20 22:00 Resp 18 02/17/20 22:00 BP 121/70 02/17/20 22:00 Pulse Ox 95 02/17/20 22:00 Discharge Plan Discharge Patient Disposition: Home Condition: Stable Prescriptions: New olanzapine 10 mg Tablet 10 mg PO BEDTIME 30 Days Qty: 30 RF: 1 Continued No Known Home Medications RF: 0 Discharge Orders: Discharge Order (Routine); Ordered 02/18/20 Ordered By: Joselito Ac Discharge Diet: Regular Discharge Activity: Resume usual activity Patient Instructions: Olanzapine (By mouth), Anxiety (DC) Discharge Date/Time: 02/18/20 08:20 Discharge Attestations NPU Time Spent in Discharge Care*: less than 30 min Specific Discharge Activities: Specific discharge activities: educating patient, discussing with correctional case manager/social workers/dc planners, documenting/other paperwork and evaluating patient/reviewing data Coding Level of Care Code 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
[2020-02-18 06:00] VITALS: BP 104/62; PULSE 53; RESP 15; TEMP 36.4; O2SAT 96
[2020-02-18 07:21] VITALS: BP 104/62; PULSE 53; RESP 15; TEMP 36.4; O2SAT 96
[2020-02-18] MEDS: nicotine 2 mg Gum BUCCAL (08:00)
== END 2020-02-18 08:20 | disposition home or self-care (01) | DRG 881 ==
LOC: ER 19:16 → NP 19:42
PROVIDERS: Emergency Medicine; Admitting Provider Psychiatry & Neurology Psychiatry; Visit Provider Psychiatry & Neurology Psychiatry
DX: F32.9 Major depressive disorder, single episode, unspecified (principal); R45.851 Suicidal ideations; F12.10 Cannabis abuse, uncomplicated; F68.8 Other specified disorders of adult personality and behavior; F19.10 Other psychoactive substance abuse, uncomplicated
CPT/HCPCS: 12345; 36415; 80053; 80306; 80307; 85025; 96372; 99284; J1200; J1630; J2060

== ENCOUNTER → 2020-03-17 11:12 | Outpatient (BNVA) | payer OTHER, SELFPAY | PROVIDERS: Visit Provider Nurse Practitioner Family | DX: Z20.828 Contact with and (suspected) exposure to other viral communicable diseases (principal); J06.9 Acute upper respiratory infection, unspecified; R43.0 Anosmia | CPT/HCPCS: 87635 ==

== ENCOUNTER → 2020-03-20 11:12 | Outpatient (BNVA) | payer OTHER, SELFPAY | PROVIDERS: Visit Provider Nurse Practitioner | DX: Z20.828 Contact with and (suspected) exposure to other viral communicable diseases (principal); J06.9 Acute upper respiratory infection, unspecified | CPT/HCPCS: 87400; 87635 ==

== ENCOUNTER → 2020-05-08 17:05 | Outpatient (BNVA) | payer OTHER, SELFPAY | PROVIDERS: Visit Provider Nurse Practitioner Family | DX: Z20.828 Contact with and (suspected) exposure to other viral communicable diseases (principal) | CPT/HCPCS: 87635 ==